=== PATIENT | female | born 1935 | race Caucasian/White ===

== ENCOUNTER 2016-11-03 08:14 | Inpatient (IN) | payer OTHER ==
[~2016-11-03] VITALS: Ht 157.5 cm; Wt 54.2 kg
[~2016-11-03 08:14] MED LIST: ACETAMINOPHEN650 M2 PO; ADULT LOW DOSE81 M1 PO; ADVAIR 250/501 DISK IH; ANTIVERT25 MG PO; ANUCORT-HC25 MG PR; ASPIR 8181 M1 PO; ASPIR 8181 MG PO; ASPIR-LOW81 MG PO; ASPIRIN81 M1 PO; AZITHROMYCIN250 MG1 PO; BISACODYL SUPP10 MG PR; CARDIZEM60 MG PO; CELEXA10 MG; CENTRUM SILVER1 EAC3 PO; CENTRUM ULTRA1 EAC1 PO; CHILD ASPIRIN81 M1 PO; CIPROFLOXACIN500 M1 PO; CLEOCIN300 MG PO; COLACE100 MG PO; COMPLETE SENIO1 EACH PO; COREG3.125 MG PO; Colace PO; Coreg PO; DEPAKOTE ER500 MG PO; DIVALPROEX SOD250 M1 PO; DOCUSATE SODIU100 MG PO; DONEPEZIL HCL10 MG PO; DURAGESIC100 MCG TD; DURAGESIC100 MICROG TD; ENDOCET 5-3251 EACH PO; ESCITALOPRAM OX10 MG PO; Ecotrin PO; FLORASTOR250 MG PO; FORTAMET500 M1 PO; FORTAMET500 MG PO; IRON325 MG PO; LACTINEX PACKE1 EACH PO; LEVAQUIN500 MG PO; LEVOTHYROXINE100 MCG PO; LEVOTHYROXINE50 MCG PO; LEVOTHYROXINE75 MCG PO; LEVOXYL50 MCG PO; LEXAPRO10 MG PO; LISINOPRIL2.5 MG PO; LOPRESSOR25 MG PO; LORAZEPAM0.5 MG PO; MECLIZINE HCL25 MG PO; MEMANTINE HCL5 MG PO; METOCLOPRAMIDE H5 MG PO; METOPROLOL TART25 MG PO; MYRBETRIQ25 MG PO; NAPROXEN375 MG PO; NEURONTIN300 MG PO; NOVOLOG PE100 UNITS/ SC; OMEPRAZOLE20 M2 PO; OMEPRAZOLE20 MG PO; OMEPRAZOLE40 M1 PO; PANTOPRAZOLE SO40 MG PO; PERCOCET 5/31 TABLET; POLYETHYLENE GL17 GM PO; PREDNISONE20 MG PO; PRILOSEC40 MG PO; PROAIR HFA8.5 GM IH; PROAMATINE5 M1 PO; PROAMATINE5 MG PO; REGLAN10 MG PO; REGLAN5 MG PO; RISPERDAL1 MG PO; RISPERIDONE0.5 MG PO; ROXICET 5-3251 EACH PO; SERAX10 MG PO; SIMVASTATIN40 MG PO; SODIUM CHLORIDE1 G1 PO; SPIRIVA1 INHALATI IH; SUCRALFATE1 GM/10 ML GT; SYNTHROID50 MCG; Tylenol Regular Stre PO; VITAMIN D250000 UNIT PO; VITAMIN D50000 UNI4 PO; XANAX0.5 MG PO; XOPENEX1.25 MG/0. IH; Xanax PO; ZESTRIL,PRINIV2.5 MG PO; ZOCOR40 MG PO; ZYPREXA ZYDIS20 MG PO; ZYVOX600 MG PO; Zestril,Prinivil PO; [UNRECOGNIZED DRUG - OTHER] TD; risperDAL PO
[2016-11-03 09:40] LABS: HEMATOCRIT 43.3 % (36.0-46.0); MCH 27.5 PG (29.0-34.0); MCHC 32.3 G/DL (30.0-36.0); MCV 85.1 FL (83-99); MEAN PLAT.VOLUME 8.4 uM^3 (9.5-12.4); PLATELET COUNT 340 K/uL (156-360); RBC DIS.WIDTH-SD 40.9 % (39-53); RED BLOOD COUNT 5.09 M/uL (3.80-5.20)
[2016-11-03 09:41] LABS: WHITE BLOOD COUNT 11.2 K/uL (4.1-10.2)
[2016-11-03 09:51] LABS: CHLORIDE 98 mEq/L (99-109); POTASSIUM 3.5 mEq/L (3.7-5.4); SODIUM 134 mEq/L (136-147)
[2016-11-03 09:53] LABS: GLUCOSE 183 mg/dL (70-99)
[2016-11-03 09:55] LABS: ANION GAP 11 MEQ/L (2-14)
[2016-11-03 09:56] LABS: GFR ESTIMATE (CALCULATED) > 59 mL/min/
[2016-11-03 09:57] LABS: UREA NITROGEN (BUN) 5 mg/dL (9-23)
[2016-11-03 10:01] LABS: TROP-I INTERPRETATION NEGATIVE; TROPONIN-I 0.01 ng/mL (0.0-0.30)
[2016-11-03] MEDS ORDERED: CARDIZEM30 MG PO (11:14)
[2016-11-03] MEDS ORDERED: DOCUSATE SODIU250 MG PO (11:15)
[2016-11-03] MEDS ORDERED: ERGOCALCIF50000 UNIT PO (11:16)
[2016-11-03] MEDS ORDERED: LEVO-T88 MCG PO (11:17)
[2016-11-03] MEDS ORDERED: NAMENDA10 MG PO (11:18)
[2016-11-03] MEDS ORDERED: OLANZAPINE10 MG PO (11:19)
[2016-11-03] MEDS ORDERED: OMEPRAZOLE40 M1 PO (11:20)
[2016-11-03] MEDS ORDERED: PERCOCET 5/31 TABLET PO (11:21)
[2016-11-03] MEDS ORDERED: AMITIZA24 MICROGR PO (11:22)
[2016-11-03] MEDS ORDERED: MULTIVITAMIN1 EAC2 PO (11:22)
[2016-11-03] MEDS ORDERED: LO-DOSE ASPIRIN81 M2 PO (11:22)
[2016-11-03 12:54] VITALS: BP 148/62
[2016-11-03 16:01] VITALS: BP 131/64
[2016-11-03 17:12] LABS: TROP-I INTERPRETATION NEGATIVE; TROPONIN-I 0.01 ng/mL (0.0-0.30)
[2016-11-03 21:37] VITALS: BP 127/58
[2016-11-03 22:23] LABS: TROP-I INTERPRETATION NEGATIVE; TROPONIN-I < 0.01 ng/mL (0.0-0.30)
[2016-11-03 23:36] VITALS: BP 127/57
[2016-11-04 03:35] VITALS: BP 129/58
[2016-11-04 07:21] LABS: POINT-OF-CARE METER ID UU14162508
[2016-11-04 07:49] LABS: HEMATOCRIT 36.6 % (36.0-46.0); MCH 28.2 PG (29.0-34.0); MCHC 33.1 G/DL (30.0-36.0); MCV 85.3 FL (83-99); MEAN PLAT.VOLUME 8.4 uM^3 (9.5-12.4); PLATELET COUNT 308 K/uL (156-360); RBC DIS.WIDTH-CV 13.2 % (11.8-14.6); RBC DIS.WIDTH-SD 40.7 % (39-53); RED BLOOD COUNT 4.29 M/uL (3.80-5.20); WHITE BLOOD COUNT 10.1 K/uL (4.1-10.2)
[2016-11-04 08:16] VITALS: BP 141/63
[2016-11-04 08:38] LABS: ANION GAP 7 MEQ/L (2-14); CHLORIDE 97 MEQ/L (99-109); GFR ESTIMATE (CALCULATED) > 59 mL/min/; SAMPLE HEMOLYSIS CHECK 0; SAMPLE ICTERIC CHECK 0; SAMPLE LIPEMIA CHECK 0; SODIUM 131 MEQ/L (136-147); UREA NITROGEN (BUN) 9 mg/dL (9-23)
[2016-11-04 08:40] LABS: GLUCOSE 105 mg/dL (70-99); POTASSIUM 4.3 MEQ/L (3.7-5.4)
[2016-11-04 12:08] VITALS: BP 107/53
[2016-11-04 17:05] VITALS: BP 146/66
[2016-11-04 19:07] VITALS: BP 143/65
[2016-11-04 23:35] VITALS: BP 119/58
[2016-11-05 03:35] VITALS: BP 124/56
[2016-11-05 06:35] LABS: POINT-OF-CARE METER ID UU14162508
[2016-11-05 07:25] VITALS: BP 153/69
[2016-11-05 09:45] LABS: ANION GAP 11 MEQ/L (2-14); CHLORIDE 96 MEQ/L (99-109); GFR ESTIMATE (CALCULATED) > 59 mL/min/; GLUCOSE 128 mg/dL (70-99); POTASSIUM 4.1 MEQ/L (3.7-5.4); SAMPLE HEMOLYSIS CHECK 0; SAMPLE ICTERIC CHECK 0; SAMPLE LIPEMIA CHECK 0; SODIUM 134 MEQ/L (136-147); UREA NITROGEN (BUN) 13 mg/dL (9-23)
[2016-11-05 11:21] VITALS: BP 110/53
[2016-11-05 19:49] VITALS: BP 142/60
[2016-11-05 23:22] VITALS: BP 113/56
[2016-11-06 04:34] VITALS: BP 134/61
[2016-11-06 07:00] VITALS: BP 125/60
[2016-11-06] MEDS ORDERED: DUONEB 2.5-0.5 M3 ML AEROSOL (10:39)
[2016-11-06] MEDS ORDERED: ACIDOPHILUS LA1 EACH PO (10:39)
[2016-11-06 15:21] VITALS: BP 166/75
[2016-11-06 15:30] LABS: POINT-OF-CARE METER ID UU14162508
[2016-11-06 23:49] VITALS: BP 133/61
[2016-11-07 06:29] LABS: POINT-OF-CARE METER ID UU14162508
[2016-11-07 06:47] LABS: HEMATOCRIT 38.8 % (36.0-46.0); MCH 28.2 PG (29.0-34.0); MCHC 32.5 G/DL (30.0-36.0); MCV 86.8 FL (83-99); MEAN PLAT.VOLUME 8.7 uM^3 (9.5-12.4); PLATELET COUNT 274 K/uL (156-360); RBC DIS.WIDTH-CV 13.6 % (11.8-14.6); RBC DIS.WIDTH-SD 43.3 % (39-53); RED BLOOD COUNT 4.47 M/uL (3.80-5.20)
[2016-11-07 06:52] LABS: WHITE BLOOD COUNT 6.8 K/uL (4.1-10.2)
[2016-11-07 07:58] VITALS: BP 121/56
[2016-11-07 07:59] LABS: ANION GAP 8 MEQ/L (2-14); CHLORIDE 97 MEQ/L (99-109); GFR ESTIMATE (CALCULATED) > 59 mL/min/; POTASSIUM 4.4 MEQ/L (3.7-5.4); SAMPLE HEMOLYSIS CHECK 0; SAMPLE ICTERIC CHECK 0; SAMPLE LIPEMIA CHECK 0; SODIUM 135 MEQ/L (136-147); UREA NITROGEN (BUN) 19 mg/dL (9-23)
[2016-11-07 08:03] LABS: GLUCOSE 88 mg/dL (70-99)
[2016-11-07 11:53] LABS: POINT-OF-CARE METER ID UU14162508
[2016-11-07] MEDS ORDERED: OMNICEF300 MG PO (12:11)
[2016-11-07] MEDS ORDERED: AZITHROMYCIN500 M1 PO (12:11)
== END 2016-11-07 14:46 | DRG 190 ==
LOC: EME → EDBD 08:14 → 2EAST 10:54 → EDOF 10:54 → 2EAST 12:11
PROVIDERS: Emergency Medicine; Internal Medicine; Student in an Organized Health Care Education/Training Program
DX: J44.0 Chronic obstructive pulmonary disease with (acute) lower respiratory infection (principal); J18.9 Pneumonia, unspecified organism; E87.6 Hypokalemia; E87.1 Hypo-osmolality and hyponatremia; E11.9 Type 2 diabetes mellitus without complications; E03.9 Hypothyroidism, unspecified; K21.9 Gastro-esophageal reflux disease without esophagitis; F31.9 Bipolar disorder, unspecified; G89.4 Chronic pain syndrome; D64.9 Anemia, unspecified; I25.10 Atherosclerotic heart disease of native coronary artery without angina pectoris; Z87.891 Personal history of nicotine dependence; I50.9 Heart failure, unspecified
CPT/HCPCS: 71010; 71250; 80048; 82948; 84484; 85027; 87040; 93005; 94640; 94640 76; 94799; 97530 GO; 97530 GP; 99202; 99281; 99285; J0456; J0696; J1100; J1650; J1815; J3105; J7030; J7050; J7644

== ENCOUNTER → 2016-12-01 | Outpatient (CLI) | payer OTHER ==
[~2016-12-01] MED LIST changes: +ACIDOPHILUS LA1 EACH PO; +AMITIZA24 MICROGR PO; +ATIVAN INTE2 MG/1 ML PO; +AZITHROMYCIN500 M1 PO; +CARDIZEM30 MG PO; +DEPAKOTE500 MG PO; +DOCUSATE SODIU250 MG PO; +DOXYCYCLINE HY100 MG PO; +DULCOLAX10 MG PR; +DUONEB 2.5-0.5 M3 ML AEROSOL; +DURAGESIC75 MCG TD; +ERGOCALCIF50000 UNIT PO; +FLEET ENEMA-AD118 ML PR; +FLUCONAZOLE200 MG PO; +HYOSCYAMINE0.125 M2 PO; +LEVO-T88 MCG PO; +LO-DOSE ASPIRIN81 M2 PO; +MORPHINE CON20 MG/M1 PO; +MULTIVITAMIN1 EAC2 PO; +NAMENDA10 MG PO; +OLANZAPINE10 MG PO; +OMNICEF300 MG PO; +PERCOCET 5/31 TABLET PO; +PHILLIPS'400 MG/5 M PO; +SYNTHROID100 MCG PO
== END ==
LOC: RAD 10:45
DX: R91.8 Other nonspecific abnormal finding of lung field (principal)
CPT/HCPCS: 71260

== ENCOUNTER 2016-12-02 21:29 | Inpatient (IN) | payer OTHER ==
[~2016-12-02] VITALS: Ht 154.9 cm; Wt 56.5 kg
[~2016-12-02 21:29] MED LIST changes: -ATIVAN INTE2 MG/1 ML PO; -DEPAKOTE500 MG PO; -DOXYCYCLINE HY100 MG PO; -DULCOLAX10 MG PR; -DURAGESIC75 MCG TD; -FLEET ENEMA-AD118 ML PR; -FLUCONAZOLE200 MG PO; -HYOSCYAMINE0.125 M2 PO; -MORPHINE CON20 MG/M1 PO; -PHILLIPS'400 MG/5 M PO; -SYNTHROID100 MCG PO
[2016-12-02 22:10] LABS: HEMATOCRIT 39.6 % (36.0-46.0); MCH 27.7 PG (29.0-34.0); MCHC 32.1 G/DL (30.0-36.0); MCV 86.3 FL (83-99); MEAN PLAT.VOLUME 8.6 uM^3 (9.5-12.4); RBC DIS.WIDTH-CV 14.1 % (11.8-14.6); RBC DIS.WIDTH-SD 44.2 % (39-53); RED BLOOD COUNT 4.59 M/uL (3.80-5.20)
[2016-12-02 22:11] LABS: PLATELET COUNT 250 K/uL (156-360)
[2016-12-02 22:18] LABS: CHLORIDE 96 mEq/L (99-109); POTASSIUM 4.2 mEq/L (3.7-5.4); SODIUM 133 mEq/L (136-147)
[2016-12-02 22:20] LABS: GLUCOSE 168 mg/dL (70-99)
[2016-12-02 22:21] LABS: ANION GAP 10 MEQ/L (2-14)
[2016-12-02 22:24] LABS: GFR ESTIMATE (CALCULATED) > 59 mL/min/
[2016-12-02 22:25] LABS: UREA NITROGEN (BUN) 20 mg/dL (9-23)
[2016-12-02 22:26] LABS: TROP-I INTERPRETATION NEGATIVE; TROPONIN-I 0.01 ng/mL (0.0-0.30)
[2016-12-02 22:44] LABS: BASE EXCESS 3.3 mEq/L (-3 to +3); BICARBONATE 28.5 mEq/L (22-26); CARBOXY HGB 1.7 % (0-5); METHEMOGLOBIN 1.1 % (0-1.5); PO2 58 mm Hg (80-100); pH 7.41 (7.35-7.45)
[2016-12-02 22:45] LABS: COMMENTS - BLOOD GASES A+C+; DEVICE NC; O2 FLOW 3 L/MIN; PCO2 45 mm Hg (35-45); SITE RR
[2016-12-02] MEDS ORDERED: DEPAKOTE500 MG PO (23:03)
[2016-12-02] MEDS ORDERED: SYNTHROID100 MCG PO (23:04)
[2016-12-02] MEDS ORDERED: ACIDOPHILUS LA1 EACH PO (23:06)
[2016-12-02] MEDS ORDERED: DULCOLAX10 MG PR (23:09)
[2016-12-02] MEDS ORDERED: DURAGESIC75 MCG TD (23:10)
[2016-12-02] MEDS ORDERED: FLEET ENEMA-AD118 ML PR (23:10)
[2016-12-02] MEDS ORDERED: PHILLIPS'400 MG/5 M PO (23:11)
[2016-12-03 02:00] VITALS: BP 145/71
[2016-12-03 03:05] LABS: METH RESISTANT S AUREUS PCR POSITIVE (NEGATIVE)
[2016-12-03 03:09] LABS: PROBE CHECK PASS
[2016-12-03 07:02] LABS: TROP-I INTERPRETATION NEGATIVE; TROPONIN-I < 0.01 ng/mL (0.0-0.30)
[2016-12-03 07:19] VITALS: BP 158/72
[2016-12-03 08:10] LABS: POINT-OF-CARE METER ID UU13113698
[2016-12-03 11:14] LABS: POINT-OF-CARE METER ID UU14174216
[2016-12-03 11:20] VITALS: BP 163/67
[2016-12-03 13:40] LABS: TROP-I INTERPRETATION NEGATIVE; TROPONIN-I 0.02 ng/mL (0.0-0.30)
[2016-12-03 15:22] VITALS: BP 151/70
[2016-12-03 16:11] LABS: POINT-OF-CARE METER ID UU14174216
[2016-12-03 19:30] VITALS: BP 150/71
[2016-12-03 22:06] LABS: POINT-OF-CARE METER ID UU14174216
[2016-12-04 00:51] VITALS: BP 147/64
[2016-12-04 05:53] LABS: HEMATOCRIT 41.4 % (36.0-46.0); MCH 27.9 PG (29.0-34.0); MCHC 33.1 G/DL (30.0-36.0); MCV 84.3 FL (83-99); PLATELET COUNT 273 K/uL (156-360); RBC DIS.WIDTH-CV 13.9 % (11.8-14.6); RBC DIS.WIDTH-SD 42.6 % (39-53); RED BLOOD COUNT 4.91 M/uL (3.80-5.20); WHITE BLOOD COUNT 8.4 K/uL (4.1-10.2)
[2016-12-04 06:36] LABS: ANION GAP 10 MEQ/L (2-14); CHLORIDE 93 MEQ/L (99-109); GFR ESTIMATE (CALCULATED) > 59 mL/min/; GLUCOSE 165 mg/dL (70-99); POTASSIUM 4.1 MEQ/L (3.7-5.4); SAMPLE HEMOLYSIS CHECK 0; SAMPLE ICTERIC CHECK 0; SAMPLE LIPEMIA CHECK 0; SODIUM 130 MEQ/L (136-147); UREA NITROGEN (BUN) 11 mg/dL (9-23)
[2016-12-04 08:09] LABS: POINT-OF-CARE USER ID ENVKC36
[2016-12-04 08:25] VITALS: BP 179/84
[2016-12-04 11:09] VITALS: BP 158/62
[2016-12-04 12:23] LABS: POINT-OF-CARE USER ID ENVKC36
[2016-12-04 21:17] VITALS: BP 160/88
[2016-12-04 23:59] VITALS: BP 116/78
[2016-12-05 03:46] VITALS: BP 120/59
[2016-12-05 05:52] LABS: ANION GAP 11 MEQ/L (2-14); CHLORIDE 93 MEQ/L (99-109); GFR ESTIMATE (CALCULATED) > 59 mL/min/; GLUCOSE 163 mg/dL (70-99); POTASSIUM 3.8 MEQ/L (3.7-5.4); SAMPLE HEMOLYSIS CHECK 0; SAMPLE ICTERIC CHECK 0; SAMPLE LIPEMIA CHECK 0; SODIUM 131 MEQ/L (136-147); UREA NITROGEN (BUN) 15 mg/dL (9-23)
[2016-12-05 08:19] LABS: POINT-OF-CARE METER ID UU13113781; POINT-OF-CARE USER ID ENVKC36
[2016-12-05 08:20] VITALS: BP 138/72
[2016-12-05 11:19] VITALS: BP 132/80
[2016-12-05 11:44] LABS: POINT-OF-CARE USER ID ENVKC36
[2016-12-05 14:09] LABS: POINT-OF-CARE USER ID 515034806
[2016-12-05 18:22] VITALS: BP 124/72
[2016-12-05 18:34] LABS: POINT-OF-CARE METER ID UU13113698; POINT-OF-CARE USER ID ENVKC36
[2016-12-05 19:26] VITALS: BP 138/60
[2016-12-05 21:16] LABS: POINT-OF-CARE METER ID UU13113781
[2016-12-05 22:42] VITALS: BP 130/72
[2016-12-06 03:07] VITALS: BP 120/60
[2016-12-06 07:47] LABS: POINT-OF-CARE METER ID UU14174216; POINT-OF-CARE USER ID NUTSLF44
[2016-12-06] MEDS ORDERED: FLUCONAZOLE200 MG PO (08:07)
[2016-12-06] MEDS ORDERED: PREDNISONE20 MG PO (08:07)
[2016-12-06] MEDS ORDERED: DOXYCYCLINE HY100 MG PO (08:07)
[2016-12-06 09:00] VITALS: BP 122/58
[2016-12-06] MEDS ORDERED: HYOSCYAMINE0.125 M2 PO (11:37)
[2016-12-06] MEDS ORDERED: MORPHINE CON20 MG/M1 PO (11:37)
[2016-12-06] MEDS ORDERED: ATIVAN INTE2 MG/1 ML PO (11:37)
[2016-12-06 12:06] LABS: POINT-OF-CARE USER ID NUTSLF44
[2016-12-06 12:37] VITALS: BP 114/55
== END 2016-12-06 15:26 | disposition hospice, home (50) | DRG 190 ==
LOC: EME → EDBD 21:29 → EDOF 23:20 → 4EAST 23:20
PROVIDERS: Emergency Medicine; Family Medicine; Internal Medicine
PROC: 0BB78ZX Excision of Left Main Bronchus, Via Natural or Artificial Opening Endoscopic, Diagnostic (ICD-10-PCS; principal; 2016-12-05)
DX: J44.0 Chronic obstructive pulmonary disease with (acute) lower respiratory infection (principal); J18.9 Pneumonia, unspecified organism; J44.1 Chronic obstructive pulmonary disease with (acute) exacerbation; J96.91 Respiratory failure, unspecified with hypoxia; E86.0 Dehydration; I50.9 Heart failure, unspecified; E03.9 Hypothyroidism, unspecified; D64.9 Anemia, unspecified; E11.9 Type 2 diabetes mellitus without complications; E78.5 Hyperlipidemia, unspecified; F31.9 Bipolar disorder, unspecified; I25.10 Atherosclerotic heart disease of native coronary artery without angina pectoris; I34.0 Nonrheumatic mitral (valve) insufficiency; J98.11 Atelectasis; K21.9 Gastro-esophageal reflux disease without esophagitis; M06.9 Rheumatoid arthritis, unspecified; M81.0 Age-related osteoporosis without current pathological fracture; Z66 Do not resuscitate; G43.909 Migraine, unspecified, not intractable, without status migrainosus; G89.29 Other chronic pain; I95.9 Hypotension, unspecified; M54.9 Dorsalgia, unspecified; B95.2 Enterococcus as the cause of diseases classified elsewhere; Z16.22 Resistance to vancomycin related antibiotics; B37.1 Pulmonary candidiasis; J98.09 Other diseases of bronchus, not elsewhere classified; Z87.891 Personal history of nicotine dependence; I25.2 Old myocardial infarction; Z79.82 Long term (current) use of aspirin; Z85.21 Personal history of malignant neoplasm of larynx; Z95.5 Presence of coronary angioplasty implant and graft; Z88.0 Allergy status to penicillin
CPT/HCPCS: 36600; 71010; 80048; 82803; 82948; 83605; 83880; 84484; 85027; 87040; 87070; 87106; 87116; 87186; 87205; 87206; 87641; 87801; 88108; 89190; 93005; 94640; 94640 76; 94667; 94668; 94760; 94799; 99202; 99281; 99285; J1650; J1815; J1956; J2020; J2250; J2270; J2405; J2930; J3010; J3370; J7030